=== PATIENT | female | born 1975 | race Caucasian/White ===

== ENCOUNTER → 2022-06-20 | Outpatient (CLI) | payer OTHER, SELFPAY ==
--- NOTE | 2022-06-20 | LES_PTH ---
PATIENT: KARMA FLAHERTY LOC: [facility] U#:[id number] AGE/SX: 47/F ROOM: RE06/20/[address]: Dr. Francisco Pruett MD : 1975 BED: DIS: 06/20/2022 SPEC #: [id number] RECD: 06/20/22 12:04 STATUS: JOSE CISCO #: [id number] JASS: 06/20/22 00:[address]: Francisco Pruett DEPT: SURGICAL PATHOLOGY RECD BY: Krysten Virgen Tissues: Skin of eyelid, NOS Procedures: Surgery Specimen Level IV HEADER OPERATION: Lesion removal left lower eyelid PRE-OP DIAGNOSIS: Lesion TISSUE SUBMITTED: Left lower eyelid lesion MICROSCOPIC DIAGNOSIS Left lower eyelid lesion, excision: Compound nevus with predominantly intradermal component. EDWARDO:arnold 06/21/2022 MICROSCOPIC DESCRIPTION Slides are reviewed. GROSS DESCRIPTION Received in fixative is one container labeled with the patient's name and designated left lower eyelid. The specimen consists of a single irregular fragment of sandoval tissue measuring 0.6 x 0.5 x 0.2 cm. The specimen is totally submitted in one cassette. / AM:arnold 06/20/2022 TC:1 [facility]: [id number]
== END | disposition home or self-care (01) ==
LOC: LABSPEC 12:46
PROVIDERS: Referring Provider Ophthalmology; Visit Provider Ophthalmology
DX: H02.9 Unspecified disorder of eyelid (principal)
CPT/HCPCS: 88305